=== PATIENT | female | born 1955 | race Caucasian/White ===

== ENCOUNTER → 2019-06-28 | Outpatient (CLI) | payer OTHER ==
[~2019-06-28] VITALS: Ht 162.6 cm; Wt 63.5 kg
[~2019-06-28] MED LIST: AMBIEN 5 MG TABL5 M1 PO; AMITRIPTYLINE H25 M3 PO; ESTRADIOL 1 MG T1 M1 PO; LIPITOR40 MG PO; METFORMIN HCL500 M3 PO; SINGULAIR 10 MG10 M1 PO; SYNTHROID75 MCG PO; VALSARTAN80 MG PO; VITAMIN D31000 UNIT PO; ZETIA10 MG PO
--- NOTE | 2019-07-01 17:07 | PATH ---
[facility] [address] [place] [address] PATHOLOGY RPT PROCEDURE Name: STEPHENIE DIAZ ANN Room #: REG FRANNY Ling.#: [id number] Admission: 06/28/19 Date of : 59 Discharge: Report #: [id number] Path Case #: [id number] [facility] Accession Number: [id number] . 01 Material submitted: . PART A: cecum - BX POLYP AT CECUM PART B: colon - BX POLYP AT PROXIMAL ASCENDING COLON. Modifiers: ascending, proximal PART C: splenic flexure - BX POLYP AT SPLENIC FLEXURE . 01 Clinical history: . History polyps Colon polyps, diverticulosis . 02 Diagnosis: A. Polyp, at cecum, endoscopic biopsy: - Tubular adenoma. - Negative for high grade dysplasia. . B. Polyp, at proximal ascending colon, endoscopic biopsy: - Compatible with a hyperplastic polyp. - Negative for dysplasia. . C. Polyp, at splenic flexure, endoscopic biopsy: - Tubular adenoma. - Negative for high grade dysplasia. . (IUV:mml; 07/01/2019) QLM 07/01/2019 1233 Local . 02 Electronically signed: . Hina Castaneda MD, Pathologist NPI- [id number] . 01 Gross description: . A. The specimen is received in formalin, labeled "Bayronjosh Stephenie Santillan, BX polyp at cecum" and consists of a fragment cantu tissue measuring 0.3 x 0.2 x 0.1 cm which is entirely submitted in A1. . B. The specimen is received in formalin, labeled "Bayronjosh Stephenie Santillan, BX polyp proximal ascending colon" and consists of a fragment of cantu tissue measuring 0.8 x 0.3 x 0.1 cm which is entirely submitted in B1. . C. The specimen is received in formalin, labeled "Roxanne Stephenie Santillan, BX polyp at splenic flexure" and consists of 2 fragments of pink-cantu tissue measuring 0.3 x 0.3 cm each which are entirely submitted in C1. (SDY; 06/28/2019) [address] [address] PATHOLOGY RPT PROCEDURE Name: STEPHENIE DIAZ Room #: REG FRANNY Bernardo#: [id number] Admission: 06/28/19 Date of : 59 Discharge: Report #: [id number] Path Case #: [id number] SYU/SYU 06/28/2019 1630 Local . 02 Pathologist provided ICD-10: D12.0, K63.5, D12.3 . 02 CPT . 547706, 615801, [id number] Specimen Comment: A courtesy copy of this report has been sent to Specimen Comment: [phone], . Specimen Comment: Report sent to / DR MURILLO Performed at: [address], [place], [place] [id number] MD Jp Thurman MD Phone: [phone] Performed at: [address] [id number] MD Hina Castaneda MD Phone: [phone]
--- NOTE | 2019-07-05 10:34 | P ---
[facility] [address] [place] [address] PROCEDURE REPORT Name: STEPHENIE DIAZ ANN Room #: REG [facility].#: [id number] Admission: 06/28/19 Attend Phys: Hemant Shepherd MD Discharge: Date of : 59 Report #: [id number] THIS REPORT FOR: //name// CC: RAVEN Shepherd Physician staff BRIEF HISTORY: The patient is a 64-year-old woman with a history of colon polyps for a surveillance colonoscopy. PREOPERATIVE DIAGNOSIS: History of colon polyps. POSTOPERATIVE DIAGNOSES: 1. Diminutive colon polyps x 3. 2. Moderate sigmoid diverticulosis coli. 3. Small internal hemorrhoids. MEDICATIONS: Deep sedation with propofol per anesthesia. SPECIMENS: 1. Cecal polyp. 2. Proximal ascending colon polyp. 3. Polyp at splenic flexure. ESTIMATED BLOOD LOSS: 3 mL. PROCEDURE: Colonoscopy to cecum and terminal ileum with biopsy. FINDINGS: Prior to propofol sedation, procedure of colonoscopy discussed with the patient as well as potential risks and its complications. She indicates she understands and desires to proceed. DESCRIPTION OF PROCEDURE: With the patient in left lateral decubitus position, digital examination was completed, which revealed no abnormalities. Subsequently, the Olympus video colonoscope was introduced in the rectum, advanced under direct vision to the cecum. This was done with minimal difficulty. The cecum was identified by the ileocecal valve and the appendiceal orifice. I was able to visualize the distal segment of the terminal ileum, which was inspected and noted to be unremarkable. At that point, the scope was slowly withdrawn and careful circumferential views obtained including retroflexing the scope in the ascending colon. Upon slow withdrawal of the scope, the prep was good. The mucosa was within normal limits, normal vascular pattern and normal light reflex. In the cecum, a diminutive polyp was identified and removed with biopsy forceps. As the scope was withdrawn in the ascending colon, another diminutive polyp was seen and removed with biopsy forceps. No additional abnormalities were noted until the splenic flexure was [facility] [address] [place] [address] PROCEDURE REPORT Name: STEPHENIE DIAZ ANN Room #: REG [facility] Sushil.#: [id number] Admission: 06/28/19 Attend Phys: Hemant Shepherd MD Discharge: Date of : 59 Report #: [id number] and another diminutive polyp was seen and removed with biopsy forceps. As we withdrew the scope through the left colon, there were scattered diverticula of moderate size. There was no endoscopic evidence of diverticulitis. The scope was withdrawn in the rectum, no abnormalities were seen. Upon retroflexion, no abnormalities were seen. Scope was withdrawn. The patient tolerated the procedure well. CONDITION OF THE PATIENT UPON DISCHARGE: Following procedure, the patient drowsy, aroused, conversant and will be discharged home when fully ambulatory. INSTRUCTIONS TO THE PATIENT AND FAMILY AT THE TIME OF DISCHARGE: The patient with finding of 3 small polyps as noted above. We will follow up path and make further recommendations. If all 3 are adenomas, she should return in 3 years; if 1 or 2 adenomas, then 5 years; if none are adenomas, then 10 years would be indicated. Withdrawal time from the cecum was 15 minutes 37 seconds and last colonoscopy was 5 years ago. <ELECTRONICALLY SIGNED> By: Hemant Shepherd MD 07/05/19 1034 0815 0055 Hemant Shepherd MD /nt
== END | disposition home or self-care (01) ==
LOC: GI 06:40
DX: Z12.11 Encounter for screening for malignant neoplasm of colon (principal); Z86.010 Personal history of colon polyps; D12.0 Benign neoplasm of cecum; D12.3 Benign neoplasm of transverse colon; K57.30 Diverticulosis of large intestine without perforation or abscess without bleeding; K64.8 Other hemorrhoids; I10 Essential (primary) hypertension; E78.00 Pure hypercholesterolemia, unspecified; K21.9 Gastro-esophageal reflux disease without esophagitis; Z90.49 Acquired absence of other specified parts of digestive tract; Z90.710 Acquired absence of both cervix and uterus; Z98.890 Other specified postprocedural states; E03.9 Hypothyroidism, unspecified; Z88.8 Allergy status to other drugs, medicaments and biological substances; Z79.899 Other long term (current) drug therapy
CPT/HCPCS: 62110; 62900